=== PATIENT | male | born 1970 | race Caucasian/White ===

== ENCOUNTER 2019-09-04 14:07 | Outpatient (REF) | payer OTHER, SELFPAY ==
[2019-09-04 15:30] LABS: Anion Gap 7.7 mmol/L (3-11); BUN 20 mg/dL (7-18); CO2 30.3 mmol/L (21.0-32.0); CREATININE 1.11 mg/dL (0.70-1.30); Calcium 9.3 mg/dL (8.5-10.1); Calculated LDL 152 mg/dL; Chloride 104 mmol/L (98-107); Cholesterol 240 mg/dL (50-200); Glucose 108 mg/dL (70-100); HDL Cholesterol 71 mg/dL (40-60); Sodium 142 mmol/L (136-145); Triglyceride 85 mg/dL (30-150)
[2019-09-07 10:44] LABS: PSA, Screening 1.1 ng/ml (0-3.5)
== END 2019-09-04 14:27 ==
LOC: NCHCN 14:07
PROVIDERS: PCP General Practice; Visit Provider Nurse Practitioner Family
DX: Z00.00 Encounter for general adult medical examination without abnormal findings (principal); Z12.5 Encounter for screening for malignant neoplasm of prostate; Z13.220 Encounter for screening for lipoid disorders; Z13.228 Encounter for screening for other metabolic disorders
CPT/HCPCS: 80048; 80061; 84153